=== PATIENT | female | born 1965 | race Caucasian/White ===

== ENCOUNTER 2018-10-17 23:01 | Emergency (ER) | payer OTHER ==
[~2018-10-17] VITALS: Ht 162.6 cm; Wt 93.4 kg
[~2018-10-17 23:01] MED LIST: BENADRYL25 MG PO
--- OUTSIDE RECORDS SUMMARY | 2018-10-17 23:04 | XMS ---
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 Kameron has no Care Guidelines for this patient. Yasir VISIT COUNT (12 MO.) 1 Geovanni Caal M.C. 2 ARIANA Ramsey TOTAL 3 NOTE: Visits indicate total known visits. ED/UCC VISIT TRACKING (12 MO.) 10/17/2018 23:01 ARIANA De [facility] [place] TYPE: Emergency COMPLAINT: - ABDOMINAL PAIN/VOMITING 01/22/2018 13:05 [facility] Juan RÍOS TYPE: Emergency DIAGNOSES: - Acute embolism and thrombosis of unspecified deep veins of left distal lower extremity - Post-op Problem - Acute embolism and thrombosis of unspecified deep veins of left proximal lower extremity - Post Surgery Poss DVT - Leg Pain (Non-traumatic) 11/11/2017 16:47 ARIANA Rice TYPE: Emergency COMPLAINT: - POSS ALLERGIC REACTION/DIFFICULTY BREATHING DIAGNOSES: - Anaphylactic reaction due to adverse effect of correct drug or medicament properly administered, initial encounter - Pruritus, unspecified INPATIENT VISIT TRACKING (12 MO.) No inpatient visits to display in this time frame [email or web address]
[2018-10-18] MEDS ORDERED: AMBIEN CR12.5 MG PO
[2018-10-18] MEDS ORDERED: OMEPRAZOLE20 MG PO
[2018-10-18] MEDS ORDERED: VALTREX500 MG PO (00:01)
[2018-10-18] MEDS ORDERED: ZOFRAN8 MG PO (03:19)
== END 2018-10-18 03:33 | disposition home or self-care (01) ==
LOC: ED 23:01
DX: K21.9 Gastro-esophageal reflux disease without esophagitis (principal); Z90.49 Acquired absence of other specified parts of digestive tract; Z90.710 Acquired absence of both cervix and uterus
CPT/HCPCS: 80053; 81001; 83690; 84703; 85025; 96361; 96374; 96375; 96376; 99284-25; J2405; J7030